=== PATIENT | female | born 1995 | race African-American/Black ===

== ENCOUNTER 2020-12-21 20:21 | Emergency (ER) | payer SELFPAY ==
[2020-12-21 20:27] VITALS: BP 121/83; PULSE 107; RESP 18; TEMP 36.6; O2SAT 100
--- NOTE | 2020-12-21 21:20 | ED.FEMALEGU ---
HPI - Female Genitourinary General Chief complaint: Urogenital-Female Stated complaint: std check Time Seen by Provider: 12/21/20 20:31 Source: patient and RN notes reviewed Mode of arrival: ambulatory Limitations: no limitations History of Present Illness HPI Narrative: This is a 25 year old female who presents for evaluation of abnormal vaginal discharge. She states she noticed white discharge a few days ago and that is abnormal for her. She denies vaginal itching or odor. She also denies abdominal pain, nausea, vomiting or back pain. Her boyfriend is in ED getting evaluated for possible STD. She states that when she has had this issue in the past and it was a UTI. She denies dysuria or increased urinary frequency. Related Data Allergies Allergy/AdvReac Type Severity Reaction Status Date / Time No Known Allergies Allergy Verified 12/21/20 22:09 Review of Systems Review of Systems: All systems reviewed & are unremarkable except as noted in HPI and below PMFSH Past Medical History Medical History (Updated 12/22/20 @ 00:00 by Cony Allred) Asthma Surgical History Surgical History (Updated 12/21/20 @ 21:22 by Aure Soto MD) No pertinent past surgical history Social History Social History (Updated 12/21/20 @ 21:22 by Aure Soto MD) Smoking status: Never smoker Exam Const: General: no acute distress and alert Orientation/consciousness: patient oriented x3 Eyes: EOM: EOMs intact bilaterally Resp: Effort & Inspection: normal respiratory effort and no retractions Auscultation: clear to auscultation bilaterally Cardio: Rate: regular rate Rhythm: regular rhythm Heart sounds: no murmurs GI: GI Palp: Yes Soft to palpation, No Tenderness to palpation present (GI) and No Guarding due to palpation present (GI) Auscultation: normal bowel sounds : Speculum Exam - Cervix: normal appearance of the cervix and Cervical os closed Bimanual Exam- Adnexa, other: no masses Other: white discharge, no CMT Skin: Rashes: no rashes Neuro: General: patient oriented x3, moves all extremities and CN's II-XI intact bilaterally Course Reevaluation(s) Reevaluation #1: I discussed with patient discharge plan. She was treated with rocephin and doxycycline presumptively Date: 06/17/21 Time: 22:07 Vital Signs Vital signs: Vital Signs Temperature 97.9 F 12/21/20 20:27 Pulse Rate 107 H 12/21/20 20:27 Respiratory Rate 18 12/21/20 20:27 Blood Pressure 121/83 12/21/20 20:27 Pulse Oximetry 100 12/21/20 20:27 Temperature 97.9 F 12/21/20 20:27 Pulse Rate 107 H 12/21/20 20:27 Respiratory Rate 18 12/21/20 20:27 Blood Pressure 121/83 12/21/20 20:27 Pulse Oximetry 100 12/21/20 20:27 MDM - Female Genitourinary Lab Data Attestation: I reviewed the patient's lab results. Labs: Lab Results 12/21/20 12/21/20 12/21/20 Range/Units 20:57 20:59 21:03 Urine Color Yellow (Yellow) Urine Appearance Cloudy H (Clear) Urine pH 6.0 (5.0-9.0) Ur Specific [place] 1.026 (1.001-1.035) Urine Protein 1+ H (Negative) mg/dL Urine Glucose (UA) Negative (Negative) mg/dL Urine Ketones Negative (Negative) mg/dL Ur Blood (Man) Negative (Negative) Urine Nitrate Negative (Negative) Urine Bilirubin Negative (Negative) Urine Urobilinogen 4.0 H (<2.0) mg/dL Leukocyte Esterase Rfl 2+ H (Negative) [facility]/UL Urine RBC 0-2 (0-2) /hpf Urine WBC 21-30 H /hpf Ur Squamous Epith Cells Many H (Few) /hpf Urine Bacteria Trace /hpf Urine Mucus Moderate H /lpf C.trachomatis RNA (TMA) Pending N.gonorrhoeae RNA (TMA) Pending Trichomonas Direct ID Negative (Negative) [facility] [place] Bedside Result Negative Reference Range: Negative Discharge Plan Discharge Clinical Impression: Cervicitis Patient Disposition: Home, Self-Care
[2020-12-21 21:24] LABS: Add Urine Microscopic? YES; Appearance Urine Cloudy (Clear); Bacteria Urine Trace /hpf; Bilirubin Urine Negative (Negative); Blood Urine Negative (Negative); Color Urine Yellow (Yellow); Glucose Urine UA Negative (Negative); Ketones Urine Negative (Negative); Leukocyte Esterase Ur 2+ LEU/UL (Negative); Mucus Urine Moderate /lpf; Nitrate Urine Negative (Negative); Protein Urine 1+ mg/dL (Negative); RBC Urine 0-2 /hpf (0-2); Specific Grav Ur 1.026 (1.001-1.035); Squamous Epithelial Cell Urine Many /hpf (Few); WBC Urine 21-30 /hpf
[2020-12-21] MEDS: cefTRIAXone 1 GM VIAL 0.5 GM IM (22:04)
[2020-12-21] MEDS: DOXYCYCLINE HYCLATE 100 MG TABLET PO (22:04)
== END 2020-12-21 22:30 | disposition home or self-care (01) ==
PROVIDERS: Emergency Provider General Practice
DX: N72 Inflammatory disease of cervix uteri (principal); J45.909 Unspecified asthma, uncomplicated
CPT/HCPCS: 81001; 81025; 87070; 87077; 87086; 87088; 87186; 87491; 87591; 87808; 96372; 99284; A9270; J0696